=== PATIENT | female | born 1945 | race Caucasian/White ===

== ENCOUNTER → 2023-09-22 15:08 | Outpatient (REF) | payer MEDICARE, SELFPAY | LOC: RCS 15:08 | PROVIDERS: ATTENDING PHYSICIAN Internal Medicine Cardiovascular Disease; FAMILY PHYSICIAN Family Medicine | DX: Z01.818 Encounter for other preprocedural examination (principal) | CPT/HCPCS: 93306 ==

== ENCOUNTER 2023-10-01 06:13 | Day surgery (SDC) | payer MEDICARE, SELFPAY ==
--- NOTE | 2023-09-04 13:02 | CM ---
Addendum entered by Yi Gallego 09/23/23 08:46:
Patient's surgery date has been changed to 09/30. Spoke again with patient. Reviewed orthopedic program and post surgical plans. She will go directly to outpatient PT at [facility] and will have support from her and daughter.
Original Note:
Patient is scheduled for an elective R TKR on 09/17/23. Spoke with patient prior to surgery via telephone. Patient had a L THR (2020) and R THR (2018) at [facility]. Reintroduced role of Orthopedic Navigator. Patient reports that she lives
with her in a split level home. There are five steps to enter and six steps between floors. She currently functions independently and uses a cane outside. She also has a raised toilet seat, hip kit and rolling walker. She has had VN services
through [facility] and [facility]. PCP is Venecia Harris.
Discussed orthopedic program and post surgical plans. Reviewed anticipated length of stay and that goal is for her to return home at discharge. Reviewed outpatient PT. Patient is in agreement with tentative plan and will go directly to outpatient
PT. Her and daughter will provide support upon discharge.
Patient will complete online education.
Plan: Orthopedic Navigator will remain available to assist with the care of patient and will reassess discharge needs after surgery.
[2023-09-10 12:50] VITALS: BMI 36.0
[2023-09-10 13:46] LABS: Hematocrit 32.6 % (37.0-47.0); Hemoglobin 10.6 g/dL (12.0-16.0); Mean Corp Hgb Conc. 32.5 g/dL (33.0-37.0); Mean Corpuscular Hgb 31.8 pg (27.0-31.0); Mean Corpuscular Volume 97.9 fL (81.0-99.0); Mean Platelet Volume 9.2 fL (7.4-10.4); Platelet Count 351 10^3/uL (130-400); Red Blood Cell Count 3.33 10^6/uL (4.20-5.40); Red Cell Dist. Width 13.9 % (11.5-14.5); White Blood Cell Count 3.5 10^3/uL (4.8-10.8)
[2023-09-10 14:04] LABS: ALT (SGPT) 24 U/L (0-35); AST (SGOT) 32 U/L (14-36); Albumin 4.3 g/dl (3.5-5.0); Alkaline Phosphatase 88 U/L (38-126); Blood Urea Nitrogen 17 mg/dl (7-17); Calcium 10.5 mg/dl (8.4-10.2); Carbon Dioxide 26 mmol/L (22-30); Chloride 102 mmol/L (98-107); Estimated Creatinine Clearance 44 ml/min; Glucose 99 mg/dl (70-99); Potassium 4.1 mmol/L (3.5-5.1); Sodium 134 mmol/L (135-145); Total Bilirubin 0.6 mg/dl (0.2-1.3); Total Protein 6.6 g/dl (6.3-8.2); eGFR > 60.00
[2023-09-10 15:09] VITALS: BMI 36.0
[2023-09-10 15:22] LABS: Glycohemoglobin (HgbA1c) 5.6 % (4.0-5.6)
[2023-10-01] VITALS (15 sets, daily range): BP systolic 72–174; BP diastolic 38–82; PULSE 78
[2023-10-01] MEDS: CELEBREX 200 MG PO (08:20)
[2023-10-01] MEDS: NORMOSOL-R 1000 IV ×2 (08:20→13:01)
[2023-10-01] MEDS: TYLENOL 650 MG PO ×4 (08:20→22:56)
--- NOTE | 2023-10-01 12:40 | W.PN.ORTHO ---
Today's Communication / Plan
-
D/c when clinically stable
Assessment
.
Distal Motor Intact: Yes
Dressing:
Clean, dry and intact.
Assessment:
R knee OA s/p R TKA w/ Dr Lewis 10/01/23
- s/p R RANDY, 08/2018, and L RANDY, 09/2020, by Dr Lewis
DVT prophylaxis - Eliquis 2.5 mg PO BID x4 weeks d/t ASA sensitivity, b/l venous foot pumps
Rheumatoid arthritis - Per her avionics test technician, Dr. Nilson Abel, she held her Rinvoq 48 hours prior to DOS
- Rinvoq will not be resumed post-surgery until approved by both Dr. Abel and her surgeon
- Start Prednisone taper post-op while holding Rinvoq
Asthma, mild and intermittent - monitor O2
- IS
- Prednisone taper
Remote GI ulcer secondary to Aspirin - Eliquis over ASA for DVT prevention per pt preference
- Start Protonix
Idiopathic peripheral neuropathy - start Gabapentin TID
Anemia of chronic disease - non-invasive hgb in AM
Obesity, BMI 36.0 - would benefit from Cefadroxil upon d/c
Mechanical failure of L RANDY, status post revision of L RANDY, 09/2020, by Dr Lewis
Prosthetic joint infection with Staph epidermis, status post two-staged revision of L RANDY, 12/2020, by Dr Lewis and IV Ancef x6 weeks
Right bundle branch block
Pulmonary nodule
Irritable bowel syndrome
Hypothyroidism
Skin cancer, status post excision
Bilateral dry eyes
Hearing impairment bilaterally
Mild leukopenia
Mild hyponatremia
Mild hypercalcemia
Plan
.
Surgery / Date: R TKA w/ Dr Lewis 10/01/23
DVT Prophylaxis: Other (Eliquis )
Activity:
Out of bed.
PT/OT
Discharge Plan: Home w/ Outpatient PT
Subjective
.
.:
Patient resting comfortably in PACU.
R knee pain minimal and currently well tolerated.
Denies any new significant complaints.
Vital Signs and Labs
.
Vital Signs and Labs:
Lab Results
09/10/23 12:42
09/10/23 12:42
Temp Pulse Resp BP Pulse Ox
97.8 F 81 16 155/79 100
10/01/23 08:04 10/01/23 08:04 10/01/23 08:04 10/01/23 08:04 10/01/23 08:04
Physical Exam
-
HEENT: No pallor, cyanosis, or jaundice. Throat clear.
NECK: Supple. No JVD.
RESPIRATORY: Lungs clear to auscultation.
CVS: S1, S2 normal. RRR.�
ABDOMEN: Soft, non-tender. No distension. Obese.
EXTREMITIES: Strength equal, no calf pain with palpation/dorsiflexion. Calves soft.
BREAST BUFFER: AOx3. No focal deficits. dairy equipment repairer grossly intact
[2023-10-01] MEDS: ULTRAM 50 MG PO (15:05)
--- NOTE | 2023-10-01 15:40 | PTCARENOTE ---
Patient admitted for right total knee replacement.She raes her pain at a 5-6 out of 10.Neurovascular assessment is within normal limits and ongoing.Vital signs are stable with the exception of blood pressure which is a little high.Will recheck.The
Mepilex dressing is dry and intact with scant drainage.The patient is in her bed with the call urbano in reach.
[2023-10-01] MEDS: SYNTHROID 50 MCG PO (16:31)
[2023-10-01] MEDS: NEURONTIN 200 MG PO ×2 (16:31→22:49)
[2023-10-01] MEDS: DELTASONE 30 MG PO (16:31)
[2023-10-01] MEDS: PROTONIX 40 MG PO (16:32)
[2023-10-01] MEDS: ESTRACE 0.5 MG PO (19:42)
[2023-10-01] MEDS: ANCEF 5 IV (19:43)
[2023-10-01] MEDS: COLACE 100 MG PO (19:43)
[2023-10-01] MEDS: BACTROBAN 2% OINTMENT 1 APPLIC NASAL (19:43)
[2023-10-01] MEDS: SENOKOT 17.1999999999999993 MG PO (19:44)
[2023-10-01] MEDS: ELIQUIS 2.5 MG PO (19:45)
[2023-10-01] MEDS: FLORASTOR 250 MG PO (19:46)
[2023-10-02] MEDS: ANCEF 5 IV (03:55)
[2023-10-02] MEDS: TYLENOL 650 MG PO ×3 (03:59→11:22)
[2023-10-02 04:10] VITALS: BP 148/66
[2023-10-02] MEDS: SYNTHROID 50 MCG PO (05:25)
[2023-10-02] MEDS: ULTRAM 50 MG PO ×2 (05:25→11:22)
[2023-10-02 07:09] VITALS: BP 132/58
[2023-10-02] MEDS: COLACE 100 MG PO (08:03)
[2023-10-02] MEDS: NEURONTIN 200 MG PO (08:03)
[2023-10-02] MEDS: SENOKOT 17.1999999999999993 MG PO (08:03)
[2023-10-02] MEDS: BACTROBAN 2% OINTMENT 1 APPLIC NASAL (08:03)
[2023-10-02] MEDS: ELIQUIS 2.5 MG PO (08:03)
[2023-10-02] MEDS: FLORASTOR 250 MG PO (08:03)
[2023-10-02] MEDS: PROTONIX 40 MG PO (08:03)
[2023-10-02] MEDS: DELTASONE 30 MG PO (08:04)
[2023-10-02] MEDS: ESTRACE PO (08:12)
--- NOTE | 2023-10-02 08:56 | CM ---
Addendum entered by Yi Gallego 10/02/23 11:45:
Patient did well in therapy. She has no concerns about going home. Update was provided to her .
Original Note:
Reviewed chart and held rounds with PT, OT and nursing. Patient admitted as planned for elective R TKR. Met with patient at bedside. Confirmed information previously obtained for assessment. Also discussed discharge plans. The plan is for patient to
return home at discharge. She will have support from her when she goes home. Patient will go directly to outpatient PT and will go to [facility]. She has an appointment scheduled for Friday, 10/02.
Patient has all needed DME.
She will use [facility] for discharge prescriptions.
Discharge plans were reviewed with patient's on 09/30.
[2023-10-02 09:17] VITALS: BP 167/63; PULSE 68
--- NOTE | 2023-10-02 10:23 | W.PN.ORTHO ---
Today's Communication / Plan
-
Await OT recs. Pt did well w/ PT this AM.
D/c later today if remaining clinically stable.
Assessment
.
Distal Motor Intact: Yes
Dressing:
Small amount of old incisional bleeding towards top of dressing. Dressing otherwise C/D/I.
Assessment:
R knee OA s/p R TKA w/ Dr Lewis 10/01/23
- s/p R RANDY, 08/2018, and L RANDY, 09/2020, by Dr Lewis
DVT prophylaxis - Eliquis 2.5 mg PO BID x4 weeks d/t ASA sensitivity, b/l venous foot pumps
Rheumatoid arthritis - Per her wrapper sheeter, Dr. Nilson Abel, she held her Rinvoq 48 hours prior to DOS
- Rinvoq will not be resumed post-surgery until approved by both Dr. Abel and her surgeon
- Start Prednisone taper post-op while holding Rinvoq
Asthma, mild and intermittent - O2 stable on RA
- IS
- Prednisone taper
Remote GI ulcer secondary to Aspirin - Eliquis over ASA for DVT prevention per pt preference - coupon given today to try and reduce cost
- Start Protonix
Idiopathic peripheral neuropathy - started Gabapentin TID
Anemia of chronic disease - non-invasive hgb stable at 10.1 POD 1 (previously 10.6)
Obesity, BMI 36.0 - would benefit from Cefadroxil upon d/c
Mechanical failure of L RANDY, status post revision of L RANDY, 09/2020, by Dr Lewis
Prosthetic joint infection with Staph epidermis, status post two-staged revision of L RANDY, 12/2020, by Dr Lewis and IV Ancef x6 weeks
Right bundle branch block
Pulmonary nodule
Irritable bowel syndrome
Hypothyroidism
Skin cancer, status post excision
Bilateral dry eyes
Hearing impairment bilaterally
Mild leukopenia
Mild hyponatremia
Mild hypercalcemia
Plan
.
Surgery / Date: R TKA w/ Dr Lewis 10/01/23
DVT Prophylaxis: Other (Eliquis )
Activity:
Out of bed.
PT/OT
Discharge Plan: Home w/ Outpatient PT
Subjective
.
.:
Patient resting comfortably in bed.
R knee pain overall well controlled w/ current pain meds.
Denies any new significant complaints.
Eager for potential d/c today.
Vital Signs and Labs
.
Vital Signs and Labs:
Lab Results
09/10/23 12:42
09/10/23 12:42
Temp Pulse Resp BP Pulse Ox
98.5 F 74 17 132/58 98
10/02/23 07:09 10/02/23 07:09 10/02/23 07:09 10/02/23 07:09 10/02/23 08:00
Non-invasive Hgb result: 10.1
Physical Exam
-
HEENT: No pallor, cyanosis, or jaundice. Throat clear.
NECK: Supple. No JVD.
RESPIRATORY: Lungs clear to auscultation.
CVS: S1, S2 normal. RRR.�
ABDOMEN: Soft, non-tender. No distension.
EXTREMITIES: Expected post-surgical R knee edema. Strength equal, no calf pain with palpation/dorsiflexion. Calves soft.
AUTOMATED CUTTING MACHINE OPERATOR: AOx3. No focal deficits. hydrogen operator grossly intact
[2023-10-02 11:16] VITALS: BP 171/62; PULSE 66; O2SAT 97
--- NOTE | 2023-10-02 11:18 | W.DS.TRANS ---
DC Summary - Rag Inspector
-
Discharge Instructions:
Sleep Apnea Risk Intermediate
Discharge Diagnosis/Procedures R knee OA s/p R TKA w/ Dr Lweis 10/01/23
Diet Other diet
Additional Diets Diabetic carb controlled x1 week for wound
healing/infection prevention; then resume
regular diet.
Activity As tolerated,With Walker
Driving Restrictions Not until seen by your Dr
Bathing Restrictions OK to Shower
Other Services PT
Wound Care Dressing to be removed 1 week post-surgery.
Instructions:
Stand-Alone Forms: Total Hip/Knee Replacement D/C
Changes to Home Medications: Yes
Discharge Medications:
DC Medications w/original date entered in [facility]
levothyroxine 50 mcg tablet 50 mcg PO DAILY Thyroid 08/03/18
peg [id number] 1 %-0.2 %-0.2 % eye drops (Dry Eye Relief) 2 drp BOTH EYES DAILY PRN DRY EYES 08/22/20
Probiotic 1 gum PO DAILY 09/05/23
estradiol 1 mg tablet 0.5 mg PO DAILY 09/05/23
mupirocin 2 % topical ointment 1 applic intranasal BID #1 tube 09/10/23
cefadroxil 500 mg capsule 500 mg PO BID #14 caps 10/01/23
acetaminophen 500 mg tablet (Tylenol Extra Strength) 1,000 mg (2 x 500 mg) PO Q6H #60 tabs 10/02/23
apixaban 2.5 mg tablet (Eliquis) 2.5 mg PO BID #56 tabs 10/02/23
docusate sodium 100 mg capsule 100 mg PO BID #30 caps 10/02/23
gabapentin 100 mg capsule 200 mg (2 x 100 mg) PO TID neuropathic pain #30 caps 10/02/23
ondansetron HCl 4 mg tablet 4 mg PO Q6H PRN nausea and vomiting #30 tabs 10/02/23
pantoprazole 40 mg tablet,delayed release 40 mg PO DAILY #30 tabs 05/30/24
prednisone 10 mg tablet 30 mg (3 x 10 mg) PO TAPER #12 tabs 10/02/23
sennosides 8.6 mg tablet (Senna Laxative) 17.2 mg (2 x 8.6 mg) PO BID #30 tabs 10/02/23
tramadol 50 mg tablet 50 mg PO Q6H PRN moderate-severe pain #30 tabs 10/02/23
Home Medication Changes
cefadroxil 500 mg capsule 500 mg PO BID #14 caps 10/01/23
acetaminophen 500 mg tablet (Tylenol Extra Strength) 1,000 mg (2 x 500 mg) PO Q6H #60 tabs 10/02/23
apixaban 2.5 mg tablet (Eliquis) 2.5 mg PO BID #56 tabs 10/02/23
docusate sodium 100 mg capsule 100 mg PO BID #30 caps 10/02/23
gabapentin 100 mg capsule 200 mg (2 x 100 mg) PO TID neuropathic pain #30 caps 10/02/23
ondansetron HCl 4 mg tablet 4 mg PO Q6H PRN nausea and vomiting #30 tabs 10/02/23
pantoprazole 40 mg tablet,delayed release 40 mg PO DAILY #30 tabs 10/02/23
prednisone 10 mg tablet 30 mg (3 x 10 mg) PO TAPER #12 tabs 10/02/23
sennosides 8.6 mg tablet (Senna Laxative) 17.2 mg (2 x 8.6 mg) PO BID #30 tabs 10/02/23
tramadol 50 mg tablet 50 mg PO Q6H PRN moderate-severe pain #30 tabs 10/02/23
Pending Results: No
[2023-10-02 11:32] VITALS: BP 146/59
== END 2023-10-02 13:00 | disposition home or self-care (01) ==
LOC: SDS 06:13
PROVIDERS: ATTENDING PHYSICIAN Orthopaedic Surgery; FAMILY PHYSICIAN Family Medicine; OTHER PHYSICIAN Physician Assistant
DX: M17.11 Unilateral primary osteoarthritis, right knee (principal)
CPT/HCPCS: 27447; 36415; 73560; 80053; 83036; 85027; 86850; 86900; 86901; 87070; 93005; 97110; 97116; 97162; 97166; 97530; 97535; C1713; C1776